=== PATIENT | male | born 1940 | race Caucasian/White ===

== ENCOUNTER → 2017-08-08 12:10 | Outpatient (CLI) | payer MEDICARE, MEDICAID, SELFPAY ==
[2017-08-08 12:38] LABS: Basophils % 0.4 % (0.1-2.0); Eosinophils # 0.1 K/mm3 (0.0-0.4); Eosinophils % 1.6 % (0.1-12.0); Lymphocytes # 2.6 K/mm3 (0.7-4.5); Lymphocytes % 29.4 K/mm3 (10-50); Mean Corpuscular HGB Conc 32.5 g/dL (31.8-35.4); Mean Corpuscular Hemoglobin 28.9 pg (27.0-31.2); Monocytes # 0.6 K/mm3 (0.1-1.0); Monocytes % 6.3 % (1.7-9.3); Neutrophils # 5.4 K/mm3 (1.8-7.8); Neutrophils % 62.3 % (37.0-80.0); Platelet Count 242 K/mm3 (142-424); Red Blood Count 4.83 M/mm3 (4.60-6.20); White Blood Count 8.7 K/mm3 (4.8-10.8)
[2017-08-08 12:59] LABS: Hemoglobin A1C 8.4 % (0.0-7.0)
[2017-08-08 13:47] LABS: Erythrocyte Sedimentation Rate 9 mm/hr (0-20)
[2017-08-08 14:51] LABS: Alanine Aminotransferase 28 U/L (12-78); Albumin Level 3.9 gm/dL (3.4-5.0); Albumin/Globulin Ratio 1.4 (1.1-1.8); Alkaline Phosphatase 102 U/L (46-116); Anion Gap 13.6 mEq/L (5-15); Aspartate Amino Transferase 12 U/L (15-37); Bilirubin,Total 0.5 mg/dL (0.2-1.0); Blood Urea Nitrogen 17 mg/dL (7-18); Calcium 8.7 mg/dL (8.5-10.1); Carbon Dioxide 28 mmol/L (21.0-32.0); Chloride 106 mmol/L (98-107); Chol/HDL Ratio 2.6 (1-3.5); Cholesterol 107 mg/dL (140-200); Creatinine,Serum 1.09 mg/dL (0.70-1.30); Estimated Glomerular Filt Rate 66 ml/min (>60); GFR (African American) 79 ML/MIN (>60); Globulin 2.8 gm/dl (1.3-3.2); Glucose 100 mg/dL (74-106); HDL Cholesterol 41 mg/dL (27-67); LDL Cholesterol 51 mg/dL (0-130); Potassium 4.6 mmoL/L (3.5-5.1); Prostate Specific Ag Screen 2.4 ng/mL (0.0-4.0); Sodium 143 mmol/L (136-145); Total Protein,Serum 6.7 gm/dL (6.4-8.2); Triglycerides 75 mg/dL (30-200); Uric Acid 4.7 mg/dL (2.6-7.2); VLDL Cholesterol 15 mg/dL (0-40)
== END ==
PROVIDERS: Visit Provider Internal Medicine Adolescent Medicine
DX: E78.5 Hyperlipidemia, unspecified (principal); E11.9 Type 2 diabetes mellitus without complications; Z79.4 Long term (current) use of insulin; M10.9 Gout, unspecified; N40.1 Benign prostatic hyperplasia with lower urinary tract symptoms; Z12.5 Encounter for screening for malignant neoplasm of prostate
CPT/HCPCS: 36415; 80053; 80061; 83036; 84550; 85025; 85651; G0103

== ENCOUNTER → 2017-09-05 11:36 | Outpatient (CLI) | payer MEDICARE, MEDICAID, SELFPAY ==
[2017-09-05 11:41] LABS: Adenovirus,PCR Not Detected (NotDetected); Bordetella Pertussis Not Detected (NotDetected); Chlamydophila Pneumoniae, PCR Not Detected (NotDetected); Coronavirus 229E Not Detected (NotDetected); Coronavirus NL63 Not Detected (NotDetected); Coronavirus OC43 Not Detected (NotDetected); Coronovirus HKU1,PCR Not Detected (NotDetected); Human Metapneumovirus Not Detected (NotDetected); Influenza A, PCR Not Detected (NotDetected); Influenza AH1, 2009 Not Detected (NotDetected); Influenza AH1, PCR Not Detected (NotDetected); Influenza AH3,PCR Not Detected (NotDetected); Mycoplasma Pneumoniae, PCR Not Detected (NotDected); Parainfluenza 1, PCR Not Detected (NotDetected); Parainfluenza 2, PCR Not Detected (NotDetected); Parainfluenza 3, PCR Not Detected (NotDetected); Parainfluenza 4, PCR Not Detected (NotDetected); Respiratory Syncytial Virus Not Detected (NotDetected); Rhinovirus/Enterovirus Not Detected (NotDetected)
--- NOTE | 2017-09-05 11:55 | XR_ITS ---
XR chest 2V COMPARISON: Portable spine chest 02/06/2015 HISTORY: Cough and fever TECHNIQUE: PA and lateral chest FINDINGS: This is a poor inspiration however lung rodrigues are clear of infiltrate. There is borderline cardio megaly without failure and is no pleural fluid. There are sternal wire sutures and surgical clips from previous CABG. There are mild degenerative changes lower thoracic spine. IMPRESSION: Nonacute chest findings
[2017-09-05 12:07] LABS: Basophils % 0.7 % (0.1-2.0); Eosinophils # 0.1 K/mm3 (0.0-0.4); Eosinophils % 1.9 % (0.1-12.0); Hematocrit 41.2 % (42.0-52.0); Hemoglobin 13.2 g/dL (14.1-18.0); Lymphocytes # 1.2 K/mm3 (0.7-4.5); Lymphocytes % 19.7 K/mm3 (10-50); Mean Corpuscular Hemoglobin 28.2 pg (27.0-31.2); Mean Corpuscular Volume 88.2 fl (80-94); Mean Platelet Volume 7.6 fl (7.4-10.4); Monocytes # 0.7 K/mm3 (0.1-1.0); Monocytes % 10.8 % (1.7-9.3); Neutrophils # 4.2 K/mm3 (1.8-7.8); Neutrophils % 66.9 % (37.0-80.0); Platelet Count 208 K/mm3 (142-424); Red Blood Count 4.67 M/mm3 (4.60-6.20); Red Cell Distribution Width 13.8 % (11.5-17.5); White Blood Count 6.3 K/mm3 (4.8-10.8)
[2017-09-05 14:54] LABS: Influenza B, PCR Detected (NotDetected)
== END ==
PROVIDERS: Visit Provider Internal Medicine Adolescent Medicine
DX: R05 Cough (principal); R50.9 Fever, unspecified
CPT/HCPCS: 36415; 71046; 85025; 87486; 87581; 87633; 87798

== ENCOUNTER → 2017-09-21 10:15 | Outpatient (CLI) | payer MEDICARE, MEDICAID, SELFPAY ==
[2017-09-21 11:24] LABS: Basophils % 0.4 % (0.1-2.0); Eosinophils # 0.2 K/mm3 (0.0-0.4); Eosinophils % 1.9 % (0.1-12.0); Hematocrit 41.1 % (42.0-52.0); Hemoglobin 13.4 g/dL (14.1-18.0); Lymphocytes # 2.1 K/mm3 (0.7-4.5); Mean Corpuscular HGB Conc 32.7 g/dL (31.8-35.4); Mean Corpuscular Hemoglobin 28.9 pg (27.0-31.2); Mean Corpuscular Volume 88.4 fl (80-94); Mean Platelet Volume 7.7 fl (7.4-10.4); Monocytes # 0.6 K/mm3 (0.1-1.0); Neutrophils # 5.6 K/mm3 (1.8-7.8); Neutrophils % 65.7 % (37.0-80.0); Platelet Count 334 K/mm3 (142-424); Red Blood Count 4.65 M/mm3 (4.60-6.20); Red Cell Distribution Width 13.9 % (11.5-17.5); White Blood Count 8.5 K/mm3 (4.8-10.8)
[2017-09-21 12:45] LABS: Alanine Aminotransferase 20 U/L (12-78); Albumin Level 3.7 gm/dL (3.4-5.0); Albumin/Globulin Ratio 1.2 (1.1-1.8); Alkaline Phosphatase 101 U/L (46-116); Anion Gap 14.9 mEq/L (5-15); Aspartate Amino Transferase 15 U/L (15-37); Bilirubin,Total 0.4 mg/dL (0.2-1.0); Blood Urea Nitrogen 12 mg/dL (7-18); Calcium 9.1 mg/dL (8.5-10.1); Carbon Dioxide 26 mmol/L (21.0-32.0); Chloride 106 mmol/L (98-107); Creatinine,Serum 0.91 mg/dL (0.70-1.30); Estimated Glomerular Filt Rate 81 ml/min (>60); GFR (African American) 98 ML/MIN (>60); Glucose 142 mg/dL (74-106); Magnesium 1.3 mg/dL (1.4-2.2); Potassium 4.9 mmoL/L (3.5-5.1); Sodium 142 mmol/L (136-145); Thyroid Stimulating Hormone 2.18 uIU/ml (0.358-3.740); Total Protein,Serum 6.7 gm/dL (6.4-8.2)
[2017-09-23 10:48] LABS: Vitamin B12 305 pg/mL (232-1245)
== END ==
PROVIDERS: Visit Provider Internal Medicine Adolescent Medicine
DX: R20.2 Paresthesia of skin (principal); R25.2 Cramp and spasm
CPT/HCPCS: 36415; 80053; 82607; 83735; 84443; 85025

== ENCOUNTER → 2017-09-26 08:23 | Outpatient (CLI) | payer MEDICARE, MEDICAID, SELFPAY ==
--- NOTE | 2017-09-26 08:33 | MR_ITS ---
MR head/brain wo con HISTORY: ITS.REASON: TRANSIENT PARALYSIS, PARESTHESIA OF RIGHT UPPER EXTREMITY, right hand numbness and weakness ORDERING PHYSICIAN: Sourav Sky MD PATIENT AGE: 77 years COMPARISON: 09/14/2012 TECHNIQUE: Standard multiplanar multiecho sequences are performed without contrast. FINDINGS: No midline shift, mass effect, intracranial hemorrhage, or hydrocephalus is evident. There is generalized atrophy with scattered periventricular and subcortical T2 white matter hyperintensities consistent with ischemic gliotic change from microvascular disease. There is a small area of increased diffusion signal in the deep white matter of the right parietal lobe consistent with small area of acute infarction. This measures approximately 5 mm. Perivascular dilated spaces are noted. The cerebellopontine angles, cerebellum, and brainstem are unremarkable. The periventricular ischemic gliotic changes have somewhat progressed since 09/14/2012. The pituitary and optic chiasm are unremarkable. There is some thinning of the corpus callosum. Fluid is present within the right mastoid sinus. IMPRESSION: 1. Small area of restricted diffusion in the right max radiata consistent with a small area of acute infarction. 2. Atrophy with chronic ischemic gliotic change. 3. Right mastoid effusion
== END ==
PROVIDERS: Family Provider Internal Medicine Adolescent Medicine; PCP Internal Medicine Adolescent Medicine; Visit Provider Internal Medicine Adolescent Medicine
DX: R29.5 Transient paralysis (principal); R20.2 Paresthesia of skin
CPT/HCPCS: 70551

== ENCOUNTER → 2018-01-16 12:45 | Outpatient (CLI) | payer MEDICARE, MEDICAID, SELFPAY ==
--- NOTE | 2018-01-16 12:50 | CI_ITS ---
Cerebrovascular Exam Indications: CVA 436. IMPRESSIONS 1. The bilateral vertebral arteries are patent with normal antegrade flow. 2. Study suggests 20-49% stenosis involving the right internal carotid artery and the left internal carotid artery. Labs, prior tests, procedures, and surgery: Left endarterectomy (2009). Labs, prior tests, procedures, and surgery: Left endarterectomy (2009). Carotid duplex study. Complete study and Doppler flow study including spectral analysis, color and short scale imaging. Height: Height: 167.6cm. Height: 66in. Weight: Weight: 84.8kg. Weight: 186.6lb. Body mass index: BMI: 30.2kg/m^2. Body surface area: BSA: 2.01m^2. Location: Vascular laboratory. Patient status: Outpatient. Tables: Arterial flow: + +--------+--------+ Location V sys V ed + +--------+--------+ Right CCA - proximal 87.2cm/s 14.9cm/s + +--------+--------+ Right CCA - distal 79.4cm/s 15.7cm/s + +--------+--------+ Right ECA 77.8cm/s -------- + +--------+--------+ Right ICA - proximal 104cm/s 20.4cm/s + +--------+--------+ Right ICA - mid 77cm/s 22.8cm/s + +--------+--------+ Right ICA - distal 76.9cm/s 22.1cm/s + +--------+--------+ Right vertebral 45.6cm/s -------- + +--------+--------+ Left CCA - proximal 84.9cm/s 14.9cm/s + +--------+--------+ Left CCA - distal 76.2cm/s 16.5cm/s + +--------+--------+ Left ECA 77.8cm/s -------- + +--------+--------+ Left ICA - proximal 71.5cm/s 14.9cm/s + +--------+--------+ Left ICA - mid 72.1cm/s 16.6cm/s + +--------+--------+ Left ICA - distal 81.4cm/s 22.1cm/s + +--------+--------+ Left vertebral 95.1cm/s -------- + +--------+--------+ Velocity ratios: + + + + + + Right, V sys Right, V ed Left, V sys Left, V ed + + + + + + Max ICA/dist CCA 1.31 1.45 1.07 1.34 + + + + + + (Report amended ) Electronically signed by: Delano Davenport [id number]
== END ==
PROVIDERS: Family Provider Internal Medicine Adolescent Medicine; PCP Internal Medicine Adolescent Medicine; Visit Provider Internal Medicine Cardiovascular Disease
DX: I67.9 Cerebrovascular disease, unspecified (principal); I25.10 Atherosclerotic heart disease of native coronary artery without angina pectoris; R09.89 Other specified symptoms and signs involving the circulatory and respiratory systems
CPT/HCPCS: 93880

== ENCOUNTER → 2018-09-29 14:55 | Outpatient (CLI) | payer MEDICARE, MEDICAID, SELFPAY ==
--- NOTE | 2018-09-29 15:03 | XR_ITS ---
XR chest 2V HISTORY: ITS.REASON: LT CHEST WALL CONTUSION, LT ANTERIOR SHOULDER PAIN, S/P FALL ORDERING PHYSICIAN: Sourav Sky MD PATIENT AGE: 78 years COMPARISON: 09/05/2017 FINDINGS: Prior CABG. Unremarkable cardiovascular structures. There are bilateral lower lobe atelectatic changes. There are displaced left seventh and eighth rib fractures posteriorly with some pleural thickening around the left eighth rib fracture. No obvious pneumothorax. Right lung is clear. IMPRESSION: Mildly displaced left seventh and eighth rib fractures with atelectatic changes
--- NOTE | 2018-09-29 15:03 | XR_ITS ---
XR shoulder LT min 2V HISTORY: Pain following injury ITS.REASON: LT CHEST WALL CONTUSION, LT ANTERIOR SHOULDER PAIN, S/P FALL ORDERING PHYSICIAN: Sourav Sky MD PATIENT AGE: 78 years Comparison: None FINDINGS: There are osteoarthritic changes of the acromioclavicular joint. There are subacromial stenosis with mild superior location of the humeral head. No acute shoulder fracture or dislocation is evident. There are mildly displaced fractures of left seventh and eighth ribs. IMPRESSION: 1. Left seventh and eighth rib fractures. 2. Degenerative changes of the acromioclavicular joint with subacromial stenosis and high right humeral head which may be seen with rotator cuff disease. No acute shoulder fracture
--- NOTE | 2018-09-29 15:03 | XR_ITS ---
XR ribs LT 2V HISTORY: Pain following injury ITS.REASON: LT CHEST WALL CONTUSION, LT ANTERIOR SHOULDER PAIN, S/P FALL ORDERING PHYSICIAN: Sourav Sky MD PATIENT AGE: 78 years Comparison: None FINDINGS: There are mildly displaced fractures involving the left seventh and eighth ribs posteriorly. No evidence of pneumothorax. IMPRESSION: Mildly displaced left seventh and eighth rib fracture.
== END ==
PROVIDERS: PCP Internal Medicine Adolescent Medicine; Visit Provider Internal Medicine Adolescent Medicine
DX: S20.212A Contusion of left front wall of thorax, initial encounter (principal); M25.512 Pain in left shoulder
CPT/HCPCS: 71046; 71100; 73030

== ENCOUNTER → 2019-02-06 12:52 | Outpatient (CLI) | payer MEDICARE, MEDICAID, SELFPAY | PROVIDERS: Visit Provider Urology | DX: Z12.5 Encounter for screening for malignant neoplasm of prostate (principal); N40.0 Benign prostatic hyperplasia without lower urinary tract symptoms | CPT/HCPCS: 36415; G0103 ==

== ENCOUNTER → 2019-04-25 15:13 | Outpatient (CLI) | payer MEDICARE, OTHER, SELFPAY ==
--- NOTE | 2019-04-25 15:16 | XR_ITS ---
PROCEDURE: XR ORBIT BILATERAL MIN 4V CLINICAL INDICATION: METAL CLEARENCE FOR MRI COMPARISON: No exams were available for comparison TECHNIQUE: AP views are obtained of the orbits with the patient looking up and down. FINDINGS: No radio opaque foreign bodies evident. IMPRESSION: No radio opaque orbital foreign body identified. Dictated by: Delano Davenport MD 04/25/2019 15:50 Electronically signed by Delano Davenport MD in [place] 04/25/2019 15:50
--- NOTE | 2019-04-25 15:20 | MR_ITS ---
PROCEDURE: MR HEAD/BRAIN WO CON CLINICAL INDICATION: MALIGNANT HYPERTESION, ALTERED MENTAL STATUS Disoriented, unsteady gait, weakness with headache in in COMPARISON: BRAINWO MR head/brain wo con from 09/26/2017 CT HEAD/BRAIN WO CON from 04/21/2019 TECHNIQUE: Routine multiplanar multi echo sequences are performed without gadolinium enhancement. FINDINGS: No evidence of acute infarction. No midline shift, mass effect, intracranial hemorrhage, or hydrocephalus is evident. There is generalized atrophy with periventricular T2 white matter hyperintensities consistent with ischemic gliotic change from microvascular disease. There are old bilateral lacunar infarctions of the basal ganglia. The cerebellopontine angles, cerebellum, and brainstem have an unremarkable appearance. The pituitary, optic chiasm, corpus callosum, and craniocervical junction have an unremarkable appearance. There kyphosis in the upper cervical spine with bulging disc at C3-C4. 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 No mastoid effusion or sinus air-fluid level. IMPRESSION: 1. No acute intracranial findings. 2. Atrophy with ischemic gliotic change from microvascular disease. No evidence of acute infarction. 3. Nonacute findings as described above Dictated by: Delano Davenport MD 04/25/2019 20:22 Electronically signed by Delano Davenport MD in [place] 04/26/2019 07:01
== END ==
PROVIDERS: PCP Internal Medicine Adolescent Medicine; Visit Provider Internal Medicine Adolescent Medicine
DX: R41.82 Altered mental status, unspecified (principal); I10 Essential (primary) hypertension
CPT/HCPCS: 70200; 70551

== ENCOUNTER → 2019-05-11 10:23 | Outpatient (CLI) | payer MEDICARE, OTHER, SELFPAY ==
[2019-05-11 11:56] LABS: Basophils # 0.1 K/mm3 (0-0.2); Basophils % 0.4 % (0.1-2.0); Eosinophils # 0.2 K/mm3 (0.0-0.4); Eosinophils % 1.8 % (0.1-12.0); Hemoglobin 12.1 g/dL (14.1-18.0); Lymphocytes # 2.3 K/mm3 (0.7-4.5); Lymphocytes % 17.1 % (10-50); Mean Corpuscular Hemoglobin 28.3 pg (27.0-31.2); Mean Corpuscular Volume 91.1 fl (80-94); Mean Platelet Volume 7.9 fl (7.4-10.4); Monocytes # 0.7 K/mm3 (0.1-1.0); Monocytes % 5.1 % (1.7-9.3); Neutrophils # 10.1 K/mm3 (1.8-7.8); Neutrophils % 75.7 % (37.0-80.0); Platelet Count 362 K/mm3 (142-424); Red Blood Count 4.28 M/mm3 (4.60-6.20); Red Cell Distribution Width 13.5 % (11.5-17.5); White Blood Count 13.4 K/mm3 (4.8-10.8)
[2019-05-11 12:10] LABS: Alanine Aminotransferase 14 U/L (12-78); Albumin Level 3.2 gm/dL (3.4-5.0); Albumin/Globulin Ratio 1.1 (1.1-1.8); Alkaline Phosphatase 96 U/L (46-116); Aspartate Amino Transferase 10 U/L (15-37); Bilirubin,Total 0.4 mg/dL (0.2-1.0); Blood Urea Nitrogen 36 mg/dL (7-18); Calcium 8.8 mg/dL (8.5-10.1); Carbon Dioxide 25 mmol/L (21.0-32.0); Chloride 104 mmol/L (98-107); Creatinine,Serum 1.62 mg/dL (0.70-1.30); Estimated Glomerular Filt Rate 41 ml/min (>60); GFR (African American) 50 ML/MIN (>60); Glucose 325 mg/dL (74-106); Sodium 139 mmol/L (136-145); Total Protein,Serum 6.2 gm/dL (6.4-8.2)
== END ==
PROVIDERS: Visit Provider Internal Medicine Adolescent Medicine
DX: I69.354 Hemiplegia and hemiparesis following cerebral infarction affecting left non-dominant side (principal)
CPT/HCPCS: 80053; 85025

== ENCOUNTER → 2019-05-15 09:23 | Outpatient (CLI) | payer MEDICARE, OTHER, SELFPAY ==
--- NOTE | 2019-05-15 09:25 | CT_ITS ---
PROCEDURE: CT ABDOMEN PELVIS WO/W CON CLINICAL INDICATION: renal mass COMPARISON: ABDPELW/O CT ABD PELVIS W/O CONTRAST from 10/24/2013 TECHNIQUE: IV Contrast: 75ML OPTIRAY 350 Oral Contrast 20ml Gastroview Axial images obtained with sagittal and coronal reformats. All CT scans at the facility use one or more dose reduction, viz: automated exposure control, ma/kV adjustment per patient size (including targeted exams where dose is matched to indication, i.e. head), or iterative reconstruction technique. FINDINGS: LOWER THORAX: No acute finding ABDOMEN & PELVIS: There is a new solid mass 2.7 x 2.3 centimeters arising from the anterior cortex of the upper to mid right kidney. A malignant neoplasm should be considered until proven otherwise. There are bilateral nonobstructing renal calculi. A 3 millimeter calcification within the lumen of the urinary bladder is noted. Cortical cysts of the left kidney are noted including 1 with rim calcification along its posterior margin. The liver, spleen, pancreas, adrenal glands, and kidneys show no acute finding. There is fatty infiltration of the liver status post cholecystectomy. There is a small hiatal hernia. Wall thickening of the distal esophagus proximal to the hernia is noted suggesting possible esophagitis. No intestinal obstruction or free air. No evidence of appendicitis or diverticulitis. No pelvic mass, abnormal fluid collection, or focal inflammatory change of the pelvis. No acute bony anomalies. There is extensive atherosclerosis including in [place] coronary arteries status post median sternotomy. Calcifications also apparent in the abdominal aorta iliac mesenteric and renal and femoral arteries. Ectasia of the infrarenal abdominal aorta to 2.5 centimeters is noted. There is few scattered colonic diverticuli without diverticulitis. The prostate gland is enlarged with mass effect on the base of the urinary bladder without a discrete mass. Multilevel degenerative disc disease is seen throughout the spine IMPRESSION: New solid mass of right kidney. Malignant neoplasm should be considered until proven otherwise. Nonobstructing bilateral renal stones with urinary bladder calculus also noted. Hiatal hernia with wall thickening of distal esophagus proximal to it suggesting esophagitis. Extensive atherosclerosis Dictated by: Jagdish Cannon 05/15/2019 11:16 Electronically signed by Jagdish Cannon in [place] 05/15/2019 11:16
== END ==
PROVIDERS: PCP Internal Medicine Adolescent Medicine; Visit Provider Urology
DX: N28.89 Other specified disorders of kidney and ureter (principal)
CPT/HCPCS: 74178; Q9967

== ENCOUNTER → 2019-09-28 14:24 | Outpatient (CLI) | payer MEDICARE, SELFPAY ==
[2019-09-28 14:35] LABS: Basophils # 0.1 K/mm3 (0-0.2)
[2019-09-28 14:38] LABS: Basophils % 0.7 % (0.1-2.0); Eosinophils # 0.1 K/mm3 (0.0-0.4); Eosinophils % 0.4 % (0.1-12.0); Hematocrit 34.2 % (42.0-52.0); Hemoglobin 10.9 g/dL (14.1-18.0); Lymphocytes # 1.8 K/mm3 (0.7-4.5); Lymphocytes % 13.4 % (10-50); Mean Corpuscular Hemoglobin 28.3 pg (27.0-31.2); Mean Corpuscular Volume 88.5 fl (80-94); Mean Platelet Volume 8.3 fl (7.4-10.4); Monocytes # 0.7 K/mm3 (0.1-1.0); Monocytes % 5.4 % (1.7-9.3); Neutrophils # 10.5 K/mm3 (1.8-7.8); Platelet Count 370 K/mm3 (142-424); Red Blood Count 3.86 M/mm3 (4.60-6.20); Red Cell Distribution Width 14.3 % (11.5-17.5); White Blood Count 13.1 K/mm3 (4.8-10.8)
[2019-09-28 15:53] LABS: Anion Gap 13.8 mEq/L (5-15); Blood Urea Nitrogen 35 mg/dl (9-20); Calcium 9.4 mg/dl (8.4-10.2); Carbon Dioxide 20 mmol/L (22.0-30.0); Chloride 109 mmol/L (98-107); Estimated Glomerular Filt Rate 53 ml/min (>60); GFR (African American) 64 ML/MIN (>60); Glucose 140 mg/dl (74-100); Potassium 4.8 mmoL/L (3.5-5.1); Sodium 138 mmol/L (136-145)
== END ==
PROVIDERS: Visit Provider Internal Medicine Adolescent Medicine
DX: E11.8 Type 2 diabetes mellitus with unspecified complications (principal)
CPT/HCPCS: 80048; 85025

== ENCOUNTER → 2019-11-06 10:42 | Outpatient (CLI) | payer MEDICARE, MEDICAID, SELFPAY ==
--- NOTE | 2019-11-06 10:46 | FL_ITS ---
PROCEDURE: FL BARIUM SWALLOW MODIFIED CLINICAL INDICATION: DYSPHAGIA COMPARISON: No exams were available for comparison TECHNIQUE: Patient administered varying consistencies of barium contrast, while viewed in lateral position under real-time fluoroscopy with cine recording. FLUOROSCOPY TIME:4 minutes and 47 seconds The study was performed in conjunction with speech pathologist. Please see that report & recommendations. FINDINGS: Patient was given varying consistencies of barium. Surgical clips are present over the hypopharynx. There is premature spillage with delayed initiation of the swallowing mechanism. There is kyphosis of the cervical spine with mild anterolisthesis of C2 on C3 no obvious vestibular penetration or tracheal aspiration.. IMPRESSION: Premature spillage with mild delayed initiation of the swallowing mechanism. No obvious aspiration or penetration Please see speech pathologist report and recommendations. Dictated by: Delano Davenport MD 11/06/2019 15:35 Electronically signed by Delano Davenport MD in [place] 11/06/2019 15:35
--- NOTE | 2019-11-06 14:34 | HMH.SLMBS2 ---
Speech & Language Evaluation Speech/Language Mod Barium Swallow Start: 11/06/19 14:07 Freq: once Status: Complete Protocol: Document 11/06/19 14:09 BENJAMIN (Rec: 11/06/19 14:33 BENJAMIN [id number]) General Information General Current Food Consistancy Dysphagia Mechanical Soft, [place] Liquids Dentition Edentulous Oxygen Status Room Air Patient Orientation Person,Place,Time,Situation Ability to Follow Directions Good MBS Recommendations Diet Dietary Recommendations Mechanical Soft,Chopped Meats, Thin Liquids Treatment/Strategies Strategy/Precaution Recommend Sitting Upright (90 deg), Double Swallow,Small Bites and Sips,Alternate Liquids/Solids Mod Barium Swallow Impressions Summary and Impressions Oral Phase Impression Minimal Impairment Oral Phase Summary Mr. Barreto was given the following consistenices: thins via spoon, straw, cup and consecutive swallows, pudding, pureed, mechanical soft, and regular. Mr. Barreto exhibited oral residue with all consistencies and premature spillage over the back of the tongue. Oral residue was cleared with a dry swallow. Pharyngeal Phase Impression No Impairment (WFL) Pharyngeal Phase Summary Mr. Barreto did exhibit penetration into laryngeal vestibule with initial trial of thin liquids. All subsequent trials were within functional limits. Speech/Language MBS Assessment/Goals/Plan Assessment Date of Evaluation: 11/06/19 Evaluation Type Initial Certification Assessment/Problems Dysphagia Does Patient Qualify for Service No Qualify/Failure Comment Patient will follow up with LIN[facility] at [facility] to determine further therapy needs. Recommendations PHYSICIAN CERTIFICATION: The specified therapy services are required, authorized, and reviewed every 30 days. Diet Recommendations Mechanical Soft Liquid Type Recommendations Normal/Thin SL Swallow Guidelines Standard Aspiration Prec. Crush Meds Crush all meds Dysphagia Swallow Precautions/Strategies Sitting Upright (90 deg), Double Swallow,Small Bites and Sips,Alternate Liquids/Solids Plan Pt/Guardian verbally ack understanding Yes: Lux
== END ==
PROVIDERS: PCP Internal Medicine Adolescent Medicine; Visit Provider Nurse Practitioner Family
DX: I69.391 Dysphagia following cerebral infarction (principal)
CPT/HCPCS: 70371; 92611

== ENCOUNTER → 2021-09-04 09:59 | Outpatient (CLI) | payer MEDICARE, MEDICAID, SELFPAY ==
--- NOTE | 2021-09-04 10:03 | CT_ITS ---
FINAL REPORT CLINICAL HISTORY: .right renal mass FINDINGS: Axial CT images of the chest were obtained with contrast. Coronal reformatted images were also obtained. This study was performed with techniques to keep radiation doses as low as reasonably achievable, (ALARA). Individualized dose reduction techniques using automated exposure control or adjustment of mA and/or KV according to the patient's size were employed. There is AP window adenopathy measuring 2.2 cm. There is subcarinal adenopathy measuring 1.9 cm. Numerous noncalcified bilateral pulmonary nodules are identified. Largest node is in the lingula measuring 19 mm. There are small bilateral pleural effusions. There is mild right base atelectasis. Findings are consistent with widespread thoracic metastatic disease. IMPRESSION: Widespread thoracic metastatic disease. Reviewed, Interpreted and Dictated by Omero Kc III, MD Transcribed by Shy Cleveland Authenticated by Omero Kc III, MD on 09/04/2021 01:06:46 PM [facility]
--- NOTE | 2021-09-04 10:04 | CT_ITS ---
FINAL REPORT CLINICAL HISTORY: RIGHT RENAL MASS COMPARISON: May 15, 2019 FINDINGS: CT OF THE ABDOMEN AND PELVIS WITH CONTRAST Axial CT images of the abdomen and pelvis were obtained after the administration of IV contrast. Coronal reformatted images were also obtained and reviewed.This study was performed with techniques to keep radiation doses as low as reasonably achievable (ALARA). Individualized dose reduction techniques using automated exposure control or adjustment of mA and/or kV according to the patient's size were employed. Abdomen: There are small pleural effusions. There are multiple nodules in the lung bases consistent with pulmonary metastases. There is a moderate hiatal hernia. The heart is normal in size. The liver has an unremarkable appearance, without evidence of mass or biliary ductal dilatation. The gallbladder surgically absent. The spleen is unremarkable. No adrenal mass is present. The pancreas has an unremarkable appearance. There is a mass in the anterior right kidney measuring 5.7 x 3.8 cm which previously measured 2.8 x 2.0 cm. This finding is consistent with worsening neoplastic involvement. There is a small nonobstructing stone in the lower pole of the right kidney. There is a left renal cyst. There is a possible left calyceal diverticulum with milk of calcium. 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 There is a new intra-aortic caval adenopathy measuring 2.1 cm. There are diffuse vascular calcifications. Pelvis: The appendix is not well-visualized. There are stones or milk of calcium on the urinary bladder. There is moderate anasarca. There is no evidence of bowel obstruction. There are lytic areas in the T12, L4 and L5 vertebrae consistent with bony metastatic disease. IMPRESSION: Significant interval worsening of right renal mass consistent with worsening neoplastic involvement. Widespread new metastatic disease as described. Reviewed, Interpreted and Dictated by Omero Kc III, MD Transcribed by Estela Jones Authenticated by Omero Kc III, MD on 09/04/2021 01:27:06 PM [facility]
== END ==
PROVIDERS: PCP Internal Medicine Adolescent Medicine; Visit Provider Nurse Practitioner Family
DX: N28.89 Other specified disorders of kidney and ureter (principal)
CPT/HCPCS: 71260; 74177; Q9967

== ENCOUNTER 2021-11-16 16:05 | Emergency (ER) | payer OTHER, SELFPAY ==
[2021-11-16 16:05] VITALS: BP 145/72; PULSE 72; RESP 18; TEMP 36.7; O2SAT 90; BMI 25.2
--- NOTE | 2021-11-16 16:20 | XR_ITS ---
PROCEDURE INFORMATION: Exam: XR Right Humerus Exam date and time: 11/16/2021 4:25 PM Age: 81 years old Clinical indication: Pain; Upper arm; Right; Patient HX: HX bone cancer TECHNIQUE: Imaging protocol: XR Right humerus. Views: 2 or more views. COMPARISON: CR (SHOULDER Y VIEW AP, SHOULDER, SHOULDER Y VIEW AP) 09/29/2018 3:09 PM FINDINGS: Bones/joints: Generalized osteopenia. There is a mottled appearance throughout the bone marrow of the humerus. The previously described distal humeral fractures again identified. The fracture is located at the site of a lytic lesion, 5.7 cm proximal to the humeral condyles. The humeral head is superiorly subluxed with respect to the bony glenoid. Soft tissues: Normal. IMPRESSION: 1. Findings compatible with pathologic fracture of the distal humerus, 5.7 cm proximal to the humeral condyles. 2. Superior subluxation of the humeral head with respect to the bony glenoid. Findings suggest underlying rotator cuff tear. 3. Diffuse osteopenia.
--- NOTE | 2021-11-16 16:20 | XR_ITS ---
PROCEDURE INFORMATION: Exam: XR Right Elbow Exam date and time: 11/16/2021 4:25 PM Age: 81 years old Clinical indication: Pain; Elbow; Right; Patient HX: HX of bone cancer, heard pop TECHNIQUE: Imaging protocol: XR Right elbow. Views: 1 or 2 views. COMPARISON: CR (SHOULDER Y VIEW AP, SHOULDER, SHOULDER Y VIEW AP) 09/29/2018 3:09 PM FINDINGS: Bones/joints: Acute fracture at the site of 2.6 cm lytic lesion in the distal radius. Generalized osteopenia. Pronounced demineralization of the radial head. Metastasis to this region suspected. Soft tissues: Soft tissue swelling. IMPRESSION: 1. Acute pathologic fracture at the site of 2.6 cm lytic lesion in the distal radius. 2. Pronounced regions of osteopenia with suspected metastatic involvement involving the radial head.
--- NOTE | 2021-11-16 16:22 | PC.NURSE ---
Notified rad of xraqy
--- NOTE | 2021-11-16 16:23 | HMH.EDGENADL ---
ED Disposition Clinical Impression: Pathologic fracture Qualifiers: Pathology associated with fracture: neoplastic disease Site of pathological fracture: humerus Encounter type: initial encounter Laterality: right Qualified Code(s): M84.521A - Pathological fracture in neoplastic disease, right humerus, initial encounter for fracture Humerus fracture Qualifiers: Encounter type: initial encounter Humerus Location: distal Fracture type: closed Fracture morphology: other fracture Fracture alignment: nondisplaced Laterality: right Qualified Code(s): S42.494A - Other nondisplaced fracture of lower end of right humerus, initial encounter for closed fracture Disposition: Home, Self-Care Condition on Discharge: Fair Instructions: Humeral Shaft Fracture Referrals: Sourav Sky MD [Primary Care Provider] - Rodolfo Blackwell MD [Staff Physician] - Time of Disposition: 17:16 - Critical Care Critical Care Time: No Attestation: On 11/16/21, the high probability of a clinically significant, sudden or life threatening deterioration of the following system(s) required my full and direct attention, intervention and personal management. The time I documented below is in addition to time spent performing reported procedures but includes the following listed in this critical care notation. Medical Decision Making - Medical Records Medical records reviewed: Yes: I reviewed the patient's medical records. - Juan Jose Inquiry Pt receiving controlled substance: No Vital Signs: 11/16/21 16:05 Temperature 98.1 F Temperature Source Oral Pulse Rate [Left Radial] 72 Respiratory Rate 18 Blood Pressure [Left Arm] 145/72 H Blood Pressure Mean [Left Arm] 96 Blood Pressure Source [Left Arm] Automatic Cuff Blood Pressure Position [Left Arm] Sitting 02 Sat by Pulse Oximetry 90 L Oxygen Delivery Method Room Air Orders (Tests/Meds): ED MEDICATIONS Discontinued Medications Generic Name Dose Route Start Last Admin Trade Name Freq PRN Reason Stop Dose Admin Morphine Sulfate 4 mg 11/16/21 17:16 11/16/21 17:20 Morphine 2mg/Ml Syringe IV 11/16/21 17:17 4 mg ONCE ONE Administration Ondansetron HCl 4 mg 11/16/21 17:17 11/16/21 17:20 Ondansetron 4mg/2ml Vial IV 11/16/21 17:18 4 mg ONCE ONE Administration - Radiology Data #1 Image(s): Humerus, Elbow Image Reviewed: Yes I reviewed the patient's radiology results, Yes I have reviewed radiologist's interpretation IMPRESSION: 1. Findings compatible with pathologic fracture of the distal humerus, 5.7 cm proximal to the humeral condyles. 2. Superior subluxation of the humeral head with respect to the bony glenoid. Findings suggest underlying rotator cuff tear. 3. Diffuse osteopenia. Medical Decision Narrative: In summary this is an 81-year-old male with history of prior CVA, bone cancer, presenting to the emergency department with pain to the right upper extremity. Patient clinically stable on arrival. Vital signs within normal limits. Will obtain x-rays of the right humerus and elbow. He has a fentanyl patch on for pain control. X-rays show a pathologic fracture of the distal humerus. Also evidence of rotator cuff tear at the shoulder. Patient and family counseled on the results. Told about the fracture. They do not want to tell him about the extent of the metastatic lesions. He will be placed into a long-arm posterior splint with a sling. Orthopedics consulted. Recommended PCP follow-up. Given return precautions. Stable for discharge. General Adult HPI - General Chief complaint: Extremity Injury, Upper Stated complaint: arm pain Time Seen by Provider: 11/16/21 16:23 Mode of Arrival: EMS Limitations: Physical Limitations Description of Symptoms (Recalled from ER Triage Doc. by RN): Pt to ED per EMS c/o rt upper arm pain. Reports hx of bone cancer. States that while having his brief changed, he heard a pop in his arm and has had pain
[2021-11-16 19:09] VITALS: BP 134/68; PULSE 76; RESP 20; TEMP 36.9; O2SAT 996
--- NOTE | 2021-11-16 19:44 | PC.NURSE ---
EMS here to collect pt. ok/ed morphine IVP on D/C
== END 2021-11-16 20:00 | disposition home or self-care (01) ==
PROVIDERS: Emergency Provider Emergency Medicine; PCP Internal Medicine Adolescent Medicine
DX: M84.521A Pathological fracture in neoplastic disease, right humerus, initial encounter for fracture (principal); C41.9 Malignant neoplasm of bone and articular cartilage, unspecified; I25.10 Atherosclerotic heart disease of native coronary artery without angina pectoris; E11.9 Type 2 diabetes mellitus without complications; I50.9 Heart failure, unspecified; Z86.73 Personal history of transient ischemic attack (TIA), and cerebral infarction without residual deficits; Z95.5 Presence of coronary angioplasty implant and graft
CPT/HCPCS: 73060; 73070; 96374; 96375; 99284; J2405